=== PATIENT | female | born 1975 | race Caucasian/White ===

== ENCOUNTER 2021-10-05 11:18 | Outpatient (CLI) | payer OTHER, SELFPAY | END 2021-10-05 11:19 | disposition home or self-care (01) | PROVIDERS: PCP Physician Assistant Medical; Visit Provider Physician Assistant Medical | DX: Z01.818 Encounter for other preprocedural examination (principal) | CPT/HCPCS: 84443 ==

== ENCOUNTER 2021-10-10 07:10 | Day surgery (SDC) | payer OTHER, SELFPAY ==
[2021-10-10] VITALS (13 sets, daily range): BP systolic 78–129; BP diastolic 45–88; PULSE 61–82; RESP 12–16; TEMP 36.2–36.8; O2SAT 89–100; BMI 25.0
--- NOTE | 2021-10-10 | CRLHL7_ITS ---
For Patients: As a result of the Cures Act, medical imaging exams and procedure reports are released immediately into your electronic medical record. You may view this report before your referring provider. If you have questions, please contact your health care provider. RIGHT BREAST SPECIMEN RADIOGRAPH, 10/10/2021 CLINICAL HISTORY: RIGHT breast surgical excision. COMPARISON: Ultrasound 10/10/2021, mammogram 10/10/2021. FINDINGS: Two views of the specimen demonstrates the localization wire present along with the biopsy clip. The lesion of concern is difficult to visualize with mammography. IMPRESSION: Specimen contains the biopsy clip and localization wire. ACR not applicable. Dictated by Azeem Lutz MD @ 10/10/2021 10:07:19 AM PT/Dictated by: Azeem Lutz MD @ 10/10/2021 10:07:00 AM (Electronically Signed)
[2021-10-10] MEDS: SODIUM CHLORIDE 0.9 % (FLUSH) 10 ML SYRINGE IVF (07:54)
[2021-10-10] MEDS: LACTATED RINGERS 1000 ML 1,000 ML 100 ML IV ×2 (08:00→09:49)
--- NOTE | 2021-10-10 08:15 | CRLHL7_ITS ---
For Patients: As a result of the Century Cures Act, medical imaging exams and procedure reports are released immediately into your electronic medical record. You may view this report before your referring provider. If you have questions, please contact your health care provider. BREAST WIRE LOCALIZATION USING ULTRASOUND GUIDANCE, 10/10/2021 CLINICAL HISTORY: Indeterminate area of dense hypoechoic tissue RIGHT breast. Previous biopsy PASH. Presents for surgical excision. LATERALITY: RIGHT breast. LESION: Ill-defined hypoechoic lesion with shadowing 12 o`clock 4 cm from the nipple. LOCALIZATION WIRE: [place] hookwire. TECHNIQUE: The localization wire was placed using real-time ultrasound guidance with image documentation. Cranial-caudal and medial-lateral digital mammograms were obtained after localization wire placement. CONSENT and TIME OUT: The procedure, risks, and alternatives were explained to the patient and a consent was signed. [place] Protocol was followed including pre-procedure verification that relevant information/documentation was available, reviewed and properly matched to the patient; consent accurate and complete; and equipment and supplies available. Time Out was conducted just prior to starting procedure to verify the four required elements: patient identity, correct side/site marked (if applicable), procedure, relevant images/results properly labeled and displayed (if applicable). PROCEDURE: The skin was prepped with ChloraPrep and 8 cc of 1% lidocaine was injected for local anesthesia. The localization wire was placed within or near the targeted breast lesion using ultrasound guidance. The patient tolerated the procedure well. PROXIMITY OF WIRE TO LESION: Within the lesion IMPRESSION: Successful breast wire localization. ACR not applicable Dictated by Azeem Lutz MD @ 10/10/2021 10:06:00 AM JR/Dictated by: Azeem Lutz MD @ 10/10/2021 10:06:00 AM (Electronically Signed)
--- NOTE | 2021-10-10 09:00 | CRLHL7_ITS ---
For Patients: As a result of the Cures Act, medical imaging exams and procedure reports are released immediately into your electronic medical record. You may view this report before your referring provider. If you have questions, please contact your health care provider. PLEASE SEE RIGHT ULTRASOUND-GUIDED WIRE LOCALIZATION OF SAME DAY. CRL:[email or web address] JASSO/Dictated by: Azeem Lutz MD @ 10/10/2021 10:06:00 AM (Electronically Signed)
--- NOTE | 2021-10-10 09:02 | SUR.PREOP ---
back from wire loc.
[2021-10-10] MEDS: CEFAZOLIN 1 GM inj IVP (09:12)
[2021-10-10] MEDS: BUPIVACAINE 0.25% 30 ML INJECTION (09:20)
--- NOTE | 2021-10-10 09:38 | SUR.OPER ---
PATIENT QUESTIONS ANSWERED SATISFACTORILY PREOPERATIVELY.? PATIENT BROUGHT TO OR #1 PER CART.? Patient positioned supine on OR #1 bed.?The perioperative?team supported arms bilaterally on arm boards.? Final approval of positioning by surgeon.?
--- NOTE | 2021-10-10 09:56 | PM.GSPRC ---
Operative Note Date of procedure: 10/10/21 Type of Procedure: Lumpectomy right breast with wire localization Procedure Description: After discussing the risks and benefits of the procedure, the patient signed informed consent. Prior to arrival in the operating room, the patient was taken to radiology where a wire was placed to localize the previously placed clip. The patient was then brought to the operating room where anesthesia was induced.The right breast was prepped and draped in the usual sterile fashion. Timeout was confirmed. Local anesthesia was infiltrated into a curvilinear incision in the 10:00 o clock position, periareolar and adjacent to the location of the tip of the wire. Using electrocautery, the segment of breast tissue containing the tip of the wire was excised. This was sent for evaluation. Radiology called back and confirmed that the clip, wire and were present within the specimen. The wound was irrigated and all irrigant suctioned from the wound. Additional local anesthesia was infiltrated. The wounds were then closed in layers using absorbable suture, and Dermbond was placed over the wounds. The patient was awakened without incident and taken to PACU in stable condition. Sponge, needle and instrument counts were correct x3 at the termination of the case. Findings: Wire localized lumpectomy. Radiology confirmed wire and clip present. Anesthesia: MAC Surgeon: Raina Marie MD Estimated blood loss (mL): 5 Condition: stable Disposition: same day
[2021-10-10] MEDS: ePHEDrine sulfate 5 MG/ML inj IVP (10:11)
--- NOTE | 2021-10-10 10:17 | W.ANESCHARGE ---
Anesthesia Charges Start Date/Time Anesthesia Start Date: 10/10/21 Anesthesia Start Time: 09:05 Stop Date/Time Anesthesia Stop Date: 10/10/21 Anesthesia Stop Time: 10:11 Summary Emergency: No
--- NOTE | 2021-10-10 11:22 | W.ANESCHARGE ---
Anesthesia Charges Start Date/Time Anesthesia Start Date: 10/10/21 Anesthesia Start Time: 09:05 Stop Date/Time Anesthesia Stop Date: 10/10/21 Anesthesia Stop Time: 10:11 Summary Emergency: No
== END 2021-10-10 12:33 | disposition home or self-care (01) ==
PROVIDERS: PCP Physician Assistant Medical; Visit Provider Surgery
PROC: (CPT 19301; principal; 2021-10-10 09:30)
DX: N63.11 Unspecified lump in the right breast, upper outer quadrant (principal)
CPT/HCPCS: 19301; 00400; 19281; 19285; 76942; 77065; 88307; C1769; J0690; J1100; J1200; J1885; J2405; J2704; J3010; J3490; J7120

== ENCOUNTER 2023-08-07 09:01 | Outpatient (CLI) | payer OTHER, SELFPAY ==
--- NOTE | 2023-08-07 09:15 | CRLHL7_ITS ---
For Patients: As a result of the Century Cures Act, medical imaging exams and procedure reports are released immediately into your electronic medical record. You may view this report before your referring provider. If you have questions, please contact your health care provider. BILATERAL SCREENING MAMMOGRAM WITH COMPUTER-AIDED DETECTION AND TOMOSYNTHESIS TECHNIQUE: CC and MLO views were obtained. These mammographic images have been obtained using full-field digital technique. These mammographic images were interpreted with the benefit of computer-aided detection. Breast Tomosynthesis was used in this interpretation. COMPARISON FILM: 08/01/22, 10/10/21, 07/17/21. FINDINGS: The breasts are heterogeneously dense, which may obscure small masses. IMPRESSION: There is no radiographic evidence for malignancy. ASSESSMENT: BI-RADS Category 2: Benign RECOMMENDATION: Routine screening mammogram in 1 year. A lay language report of this examination will be provided to the patient. Azeem Lutz M.D. Diagnostic Radiologist [email or web address] SP/Dictated by: Azeem Lutz MD @ 08/12/2023 9:35:00 AM (Electronically Signed)
== END 2023-08-07 09:02 | disposition home or self-care (01) ==
LOC: MAMMO 09:03
PROVIDERS: PCP Physician Assistant Medical; Visit Provider Physician Assistant Medical
DX: Z12.31 Encounter for screening mammogram for malignant neoplasm of breast (principal); R92.2 Inconclusive mammogram
CPT/HCPCS: 77063; 77067

== ENCOUNTER 2023-11-28 11:13 | Outpatient (CLI) | payer OTHER, SELFPAY ==
[2023-11-29 04:47] LABS: Chlamydia DNA Amplified* NOT DETECTED (No Detected); GC DNA Amplified* NOT DETECTED (No Detected)
== END 2023-11-28 11:14 | disposition home or self-care (01) ==
PROVIDERS: PCP Physician Assistant Medical; Visit Provider Physician Assistant Medical
DX: Z00.00 Encounter for general adult medical examination without abnormal findings (principal); R10.2 Pelvic and perineal pain; Z13.0 Encounter for screening for diseases of the blood and blood-forming organs and certain disorders involving the immune mechanism; Z13.29 Encounter for screening for other suspected endocrine disorder; Z11.3 Encounter for screening for infections with a predominantly sexual mode of transmission
CPT/HCPCS: 80053; 84443; 87491; 87591; 87624; 87625; 88141; 88142

== ENCOUNTER 2023-12-02 15:32 | Outpatient (CLI) | payer OTHER, SELFPAY ==
--- NOTE | 2023-12-02 15:45 | CRLHL7_ITS ---
For Patients: As a result of the Century Cures Act, medical imaging exams and procedure reports are released immediately into your electronic medical record. You may view this report before your referring provider. If you have questions, please contact your health care provider. INDICATION: Bloating x 4 months. regular menstrual cycle. check for fibroids COMPARISON: none TECHNIQUE: 2D champion scale and color Doppler images were acquired of the pelvis using a transabdominal and transvaginal approach. FINDINGS: Uterus measures 7.0 cm in length by 4.0 cm in AP diameter by 4.8 cm in transverse dimension. Right-sided intramural fibroid is present measuring 2.5 x 1.6 x 1.6 cm. Fundal myometrium is heterogeneous. Cervical nabothian cyst is present measuring 10 x 9 x 10 millimeters. The endometrial lining appears normal and measures 5.4 mm in composite thickness. The right ovary is not visualized and the left ovary measures 2.2 x 1.0 x 1.7 cm. The ovaries demonstrate normal arterial and venous blood flow on color Doppler analysis. There are no suspicious fluid collections within the cul-de-sac. Small left ovarian cyst is present measuring 8 x 5 x 8 millimeters. IMPRESSION: Right-sided intramural fibroid measures 2.5 cm. Dictated by Azeem Lutz MD @ 12/03/2023 12:04:08 PM (Electronically Signed)
== END 2023-12-02 15:33 | disposition home or self-care (01) ==
LOC: US 15:33
PROVIDERS: PCP Physician Assistant Medical; Visit Provider Physician Assistant Medical
DX: R10.2 Pelvic and perineal pain (principal); D25.1 Intramural leiomyoma of uterus
CPT/HCPCS: 76830; 76856

== ENCOUNTER 2024-01-20 08:09 | Outpatient (CLI) | payer OTHER, SELFPAY ==
--- NOTE | 2024-01-20 08:15 | CRLHL7_ITS ---
For Patients: As a result of the Century Cures Act, medical imaging exams and procedure reports are released immediately into your electronic medical record. You may view this report before your referring provider. If you have questions, please contact your health care provider. CLINICAL HISTORY: Abdominal pain COMPARISON: none TECHNIQUE: Real time champion scale imaging and color Doppler analysis was performed of the abdomen. FINDINGS: Sonographic imaging demonstrates normal size and uniform echotexture of the liver. Main portal vein measures 1.1 cm. The spleen is of normal size. The pancreas appears normal. The proximal abdominal aorta and IVC appear normal. There is no evidence of ascites. The gallbladder is of normal size and there is no evidence of sludge or stones within the gallbladder lumen. The gallbladder wall measures 1.2 mm in thickness. The common bile duct measures 2.0 mm in size within the ulises hepatis. Simple cyst right kidney measures 10 x 7 x 11 millimeters. Calcification in the left kidney measures 4 x 4 x 5 millimeters. The right kidney measures 11.4 cm in length and the left kidney measures 11.2 cm. IMPRESSION: Nonobstructing left renal stone measuring 5 millimeters. Incidental simple cyst right kidney. Otherwise unremarkable. Dictated by Azeem Lutz MD @ 01/20/2024 10:11:12 AM (Electronically Signed)
== END 2024-01-20 08:10 | disposition home or self-care (01) ==
LOC: US 08:10
PROVIDERS: PCP Physician Assistant Medical; Visit Provider Obstetrics & Gynecology
DX: R10.9 Unspecified abdominal pain (principal); N20.0 Calculus of kidney
CPT/HCPCS: 76700

== ENCOUNTER 2024-06-04 15:44 | Outpatient (CLI) | payer OTHER, SELFPAY ==
--- NOTE | 2024-06-04 16:00 | CRLHL7_ITS ---
For Patients: As a result of the Century Cures Act, medical imaging exams and procedure reports are released immediately into your electronic medical record. You may view this report before your referring provider. If you have questions, please contact your health care provider. INDICATION: Calculus of kidney TECHNIQUE: CT abdomen and pelvis without contrast. COMPARISON: Abdominal ultrasound 01/20/2024 FINDINGS: Lower chest: Unremarkable. Liver: Normal in size and attenuation. No suspicious masses. Gallbladder and bile ducts: No stones or inflammation. No biliary dilatation. Pancreas: Unremarkable. No mass or inflammation. Spleen: Normal in size. No masses. Adrenal glands: Normal in size. No nodules. Kidneys: Normal in size. No suspicious masses, stones, or hydronephrosis. GI tract: Unremarkable. Normal in caliber. No sign of mass or inflammation. Normal appendix. Linear radiopaque structure in the stomach likely represents ingested material Vasculature: Abdominal aorta is normal in caliber. Lymph nodes: No lymphadenopathy. Peritoneum/Abdominal Wall: Unremarkable. No sign of mass or infiltration. No free air or significant free fluid. Pelvis: Unremarkable. No pelvic masses. Bones: Moderate degenerative change at L5-S1. Left hip degenerative change. IMPRESSION: No acute findings on noncontrast exam. No evidence of renal or ureteral calculi. Please note that all CT scans at this facility use dose modulation, iterative reconstruction, and/or weight-based dosing when appropriate to reduce radiation dose to as low as reasonably achievable. Dictated by Rachel Stweart MD @ 06/05/2024 9:18:37 AM (Electronically Signed)
== END 2024-06-04 15:45 | disposition home or self-care (01) ==
LOC: CT 15:46
PROVIDERS: PCP Physician Assistant Medical; Visit Provider Urology
DX: N20.0 Calculus of kidney (principal)
CPT/HCPCS: 74176

== ENCOUNTER 2024-09-03 15:22 | Outpatient (CLI) | payer OTHER, SELFPAY ==
--- NOTE | 2024-09-03 15:40 | CRLHL7_ITS ---
For Patients: As a result of the Century Cures Act, medical imaging exams and procedure reports are released immediately into your electronic medical record. You may view this report before your referring provider. If you have questions, please contact your health care provider. BILATERAL DIGITAL SCREENING MAMMOGRAM WITH COMPUTER-AIDED DETECTION AND TOMOSYNTHESIS CLINICAL HISTORY: Routine screening exam. COMPARISON: 08/07/2023, 08/01/2022, 07/10/2021 TECHNIQUE: Digital mammogram in CC and MLO projections including computer-aided detection (CAD). Tomosynthesis was used in this interpretation. BREAST COMPOSITION: The breasts are heterogeneously dense, which may obscure small masses. FINDINGS: RIGHT Breast: Area of asymmetric density in the upper outer quadrant 5 cm from the nipple, probably related to prior lumpectomy. LEFT Breast: No suspicious findings. IMPRESSION: RIGHT breast asymmetry/mass. RECOMMENDATIONS: Additional mammographic views of the RIGHT breast including 3D spot-compression CC/MLO. RIGHT breast ultrasound may also be required. The [facility] will contact the patient. A lay language report of this examination will be provided to the patient. BI-RADS Category 0: Incomplete: Need Additional Imaging Evaluation Dictated by Azeem Lutz MD @ 09/04/2024 8:46:40 AM Dictated by: Azeem Lutz MD @ 09/04/2024 08:46:48 (Electronically Signed)
== END 2024-09-03 15:23 | disposition home or self-care (01) ==
LOC: MAMMO 15:22
PROVIDERS: PCP Physician Assistant Medical; Visit Provider Physician Assistant Medical
DX: Z12.31 Encounter for screening mammogram for malignant neoplasm of breast (principal); N63.10 Unspecified lump in the right breast, unspecified quadrant; R92.333 Mammographic heterogeneous density, bilateral breasts
CPT/HCPCS: 77063; 77067

== ENCOUNTER 2024-09-09 09:34 | Outpatient (CLI) | payer OTHER, SELFPAY ==
--- NOTE | 2024-09-09 09:45 | CRLHL7_ITS ---
For Patients: As a result of the Cures Act, medical imaging exams and procedure reports are released immediately into your electronic medical record. You may view this report before your referring provider. If you have questions, please contact your health care provider. DIGITAL DIAGNOSTIC RIGHT MAMMOGRAM WITH TOMOSYNTHESIS RIGHT BREAST ULTRASOUND CLINICAL HISTORY: RIGHT breast mass/asymmetry. COMPARISON: 09/03/2024, 08/07/2023, 08/01/2022, 05/17/2021. TECHNIQUE: Digital RIGHT mammogram in two projections. Tomosynthesis was used in this interpretation. Real-time ultrasound imaging of RIGHT breast with imaging documentation. BREAST COMPOSITION: The breast is heterogeneously dense, which may obscure small masses. FINDINGS: 3D spot compression CC/MLO RIGHT breast mammogram images submitted. Decreased conspicuity of previously noted asymmetric density. Post excisional biopsy changes are present. No suspicious calcifications or adenopathy. Targeted RIGHT breast ultrasound performed at 11 o`clock 5 cm from the nipple. Scar tissue is present from prior excisional biopsy demonstrated by ill-defined hypoechoic tissue. No discernible underlying mass. No abnormal vascularity. Previous excisional biopsy and percutaneous biopsy were consistent with benign tissue/PASH. IMPRESSION: No evidence of malignancy. RECOMMENDATIONS: Routine screening mammography. A lay language report of this examination will be provided to the patient. BI-RADS Category 2: Benign Dictated by Azeem Lutz MD @ 09/09/2024 10:48:43 AM jj/Dictated by: Azeem Lutz MD @ 09/09/2024 10:48:00 AM (Electronically Signed)
--- NOTE | 2024-09-09 10:15 | CRLHL7_ITS ---
For Patients: As a result of the Cures Act, medical imaging exams and procedure reports are released immediately into your electronic medical record. You may view this report before your referring provider. If you have questions, please contact your health care provider. SEE DIGITAL DIAGNOSTIC RIGHT MAMMOGRAM PERFORMED SAME DAY CRL:[email or web address] bright/Dictated by: Azeem Lutz MD @ 09/09/2024 10:48:00 AM (Electronically Signed)
== END 2024-09-09 09:35 | disposition home or self-care (01) ==
LOC: MAMMO 09:34
PROVIDERS: PCP Physician Assistant Medical; Visit Provider Physician Assistant Medical
DX: N63.10 Unspecified lump in the right breast, unspecified quadrant (principal); R92.8 Other abnormal and inconclusive findings on diagnostic imaging of breast
CPT/HCPCS: 76642; 77065; G0279